=== PATIENT | female | born 1945 | race Caucasian/White ===

== ENCOUNTER 2022-03-10 16:43 | Inpatient (IN) | payer MEDICARE, MEDICAID ==
[~2022-03-10] VITALS: Ht 154.9 cm; Wt 86.4 kg
[~2022-03-10 16:43] MED LIST: B/P MED; LEVOXYL0.025 MG; NAPROXEN 3375 MG/TAB PO; NORCO 325 MG-51 TAB PO
[2022-03-10 20:09] LABS: COLLECTION METHOD CLEAN CATCH
[2022-03-10 20:12] LABS: BASO % 0.2 % (0.0-2.0); EOS % 0.2 % (0.0-4.0); GRAN # 11.9 K/mm3 (1.4-6.5); GRAN % 84.7 % (42.2-75.2); HEMATOCRIT 38.1 % (37.0-47.0); HEMOGLOBIN 11.9 g/dl (12.5-16.0); LYMPH # 1.4 K/mm3 (1.2-3.4); LYMPH % 9.9 % (20.0-51.0); MEAN CELL VOLUME 82 fl (80.0-100.0); MEAN CORPUSCULAR HEMOGLOBIN 26 pg (27-31); MEAN CORPUSCULAR HGB CONC 31 g/dl (33.0-37.0); MEAN PLATELET VOLUME 10.1 fl (7.4-10.4); MONO # 0.6 K/mm3 (0.1-0.6); MONO % 4.5 % (1.7-9.3); PLATELET COUNT 291 K/mm3 (130-400); RED BLOOD COUNT 4.65 M/mm3 (4.10-5.30); REDCELL DISTRIBUTION WIDTH-CV 19.4 % (11.5-14.5)
[2022-03-10 20:13] LABS: URINE APPEARANCE Cloudy (CLEAR/HAZY); URINE COLOR Amber (YELLOW)
[2022-03-10 20:14] LABS: URINE BLOOD Negative (NEGATIVE); URINE GLUCOSE Negative (NEGATIVE); URINE KETONE TRACE (NEGATIVE); URINE NITRATE Negative (NEGATIVE); URINE PROTEIN(semi-quant) 1+ (NEGATIVE)
[2022-03-10 20:16] LABS: MUCOUS Present (NOT PRESENT); URINE BACTERIA None Seen /hpf (NONE SEEN)
[2022-03-10 20:41] LABS: ALBUMIN 3.7 gm/dL (3.4-4.8); BILIRUBIN,TOTAL 1.7 mg/dL (0.2-1.2); C-REACTIVE PROTEIN 1.13 mg/dL (0.00-0.50); CALCIUM 9.5 mg/dL (8.4-10.2); CREATININE, serum 0.88 mg/dL (0.57-1.11); POTASSIUM 4.1 mmol/L (3.5-4.5); TOTAL PROTEIN 7.8 gm/dL (6.2-8.1)
[2022-03-10] MEDS ORDERED: PROVENTIL0.09 MG/A1 IH (23:58)
[2022-03-11] VITALS (19 sets, daily range): BP systolic 126–217; BP diastolic 54–83; PULSE 70–110; TEMP 97.7–100.7
[2022-03-11 01:10] LABS: INR 1.1 (0.8-3.0); PROTHROMBIN TIME 12.2 SECONDS (9.7-12.8)
--- NOTE | 2022-03-11 01:25 | NUR ---
PT BROUGHT TO ROOM FROM ED.
[2022-03-11 01:28] LABS: CHOLESTEROL RISK RATIO 3.7; PHOSPHOROUS 3.5 mg/dL (2.3-4.7)
--- NOTE | 2022-03-11 01:41 | NUR ---
PT A&OX4 RESTING IN BED. ADMISSION ASSESSMENT COMPLETE. RATES PN AN 12/15. DENIES NV. O2 ON 3L. TELE IN PLACE. ZOSYN AND NS INFUSING IN LH. NO NEEDS AT THIS TIME. CALL LIGHT WITHIN REACH.
[2022-03-11 04:43] LABS: ALANINE AMINOTRANSFERASE 184 U/L (0-55); ALBUMIN 3.1 gm/dL (3.4-4.8); ALKALINE PHOSPHATASE 257 U/L (40-150); ANION GAP 8 mmol/L (7-16); AST,SGOT 65 U/L (5-34); BILIRUBIN,TOTAL 1.7 mg/dL (0.2-1.2); BLOOD UREA NITROGEN 25 mg/dL (10-20); CALCIUM 8.8 mg/dL (8.4-10.2); CARBON DIOXIDE 26 mmol/L (23-31); CHLORIDE 108 mmol/L (98-107); CREATININE, serum 0.83 mg/dL (0.57-1.11); GLUCOSE 120 mg/dL (70-99); LIPASE > 1200 U/L (8-78); POTASSIUM 3.9 mmol/L (3.5-4.5); SODIUM 142 mmol/L (136-145); TOTAL PROTEIN 6.6 gm/dL (6.2-8.1)
--- NOTE | 2022-03-11 09:32 | NUR ---
KALLIE met with the patient to discuss discharge plan. The patient lives in [place] with her daughter, Purnima (ph#[phone]), and two granddaughters. She reports needing some assistance getting in and out of the shower, but her family helps her with this. She has a cane. The patient's PCP is Dr. Julio Shields and she receives her medications from [facility] in . The patient does not have a DPOA-HC and she was not interested in completing one at this time. The patient states that she is still , but that her and her have been seperated for 20 years. She has two children: Purnima and Bruno ([place]). KALLIE informed her how her is her legal next of kin, since she does not have a DPOA-HC and encouraged her to think about completing a DPOA-HC. The patient verbalized understanding and still declined to complete one at his time. The patient plans to return home with her family upon discharge. KALLIE asked the PA for PT/OT to be ordered. *Discharge plan: home with family*
--- NOTE | 2022-03-11 10:00 | NUR ---
RT REPORTED TO NURSING THAT PATIENT WAS FOUND WITH HER OXYGEN OFF, PATIENT TOOK IT OFF AGAIN. 02 SATS IN 70'S. PATIENT WAS ON 2L PER NC WITH SATS IN MID 90'S. RT SAID PATIENT SLOW TO RECOVER, SLEEPY, AND NON-COMPLIENT. PATIENT NOW ON 4L PER NC WITH SATS IN LOW 90'S.
--- NOTE | 2022-03-11 11:00 | NUR ---
PCT REPORTED ELEVATED B/P WITH A SYSTOLIC IN 200'S, CHECKED TWICE. PATIENT REPORTS THIS IS DUE TO PAIN AND JUST RECENTLY GOT UP TO BEDSIDE COMMODE. [facility], SEE ORDERS. GAVE PRN IV HYDRALAZINE AND PRN IV MORPHINE. PATIENT STILL PERIODICALLY TAKING OXYGEN OFF, OXY MASK NOW APPLIED AT 4L WITH SATS IN LOW 90'S. PATIENT IS FREQUENTLY DROWSY EVEN THOUGH SHE DENIES THAT SHE IS ABLE TO SLEEP. NURSING EXPRESSED THE IMPORTANCE OF HER LEAVING HER OXYGEN OFF, PATIENT ACTS LIKE SHE DOESN'T REALLY NEEDS IT AND "WE ARE ALL CRAZY". WILL CONTINUE TO MONITOR. PATIENT STILL NPO FOR SCHEDULED ERCP TODAY. IV FLUIDS INFUSING VIA PUMP. CALL LIGHT IN REACH. BED ALARM ON.
--- NOTE | 2022-03-11 11:45 | NUR ---
PCT WENT TO RECHECK O2 LEVEL AND PATIENT AGAIN TOOK OXY MASK OFF AND PUT IT ON HER FOREHEAD. PATIENT, AGAIN, REMINDED/EDUCATED ABOUT OXYGEN PERFUSION. OXY MASK BACK ON AT 4L WITH SATS IN LOW 90'S. PATIENT DROWSY AND FALLS ASLEEP FREQUENTLY. RECENTLY ROUNDED AND PATIENT SHOWED VERY LITTLE INTEREST IN TALKING WITH THE SURGEON. PATIENT NOW SLEEPING AGAIN.
--- NOTE | 2022-03-11 15:55 | NUR ---
PATIENT WOKE UP CONFUSED AND WANTING TO LEAVE. PATIENT TOOK OXYGEN OFF AGAIN. NURSING ATTEMPTING TO RE-ORIENT PATIENT. PATIENT GETS UPSET AND SAYS SHES NOT CONFUSED HOWEVER SHE HAS BEEN REMINDED THREE TIMES THAT HER ERCP PROCEDURE IS TODAY, PATIENT CAN'T SEEM TO UNDERSTAND WHY SHE CAN'T HAVE WATER AFTER THIS HAS BEEN EXPLAINED MULTIPLE TIMES. PATIENT MAKING STATEMENT LIKE "YOU HAVEN'T LET ME EAT OR DRINK IN THREE DAYS". PATIENT IS CLEARLY CONFUSED BUT REFUSES TO LET NURSING RE-ORIENT HER.
--- NOTE | 2022-03-11 16:26 | NUR ---
Qi: shinto Situation: drill presser stopped by room on rounds Background: Pt was sleeping solid each visit so drill presser did not disturb Assessment: Will try tomorrow again Recommendation: drill presser will follow up as needed
--- NOTE | 2022-03-11 16:30 | NUR ---
PATIENT GOING DOWN TO ENDO VIA BED. CONSENT ON CHART. IV FLUIDS TO GRAVITY. GAVE REPORT TO ENDO NURSE. PATIENT OFF FLOOR.
--- NOTE | 2022-03-11 21:30 | NUR ---
PT IN BED, DROWSY POST ENDO PROCEDURE. MEDICATED WITH APRESOLINE 10MG IVP FOR ELEVATED SBP. PT HAS IVF TO LEFT HAND INFUSING WITHOUT REDNESS OR SWELLING. O2 AT 3L/NC.
--- NOTE | 2022-03-11 22:20 | NUR ---
REPORTS ABD PAIN, MEDICATED WITH MORPHINE 2MG IVP AT THIS TIME. IS ONE ASSIST TO BATHROOM AND BACK TO BED. TELEMETRY SHOWS SR. WILL BE NPO AFTER MIDNIGHT FOR POSSIBLE GALLBLADDER SURGERY.
[2022-03-12] VITALS (7 sets, daily range): BP systolic 126–176; BP diastolic 52–76; PULSE 94–103; TEMP 98.3–98.9
--- NOTE | 2022-03-12 03:53 | NUR ---
MEDICATED WITH HYDRALZINE 10MG IVP FOR ZFL=314. PT RESTING WITH EYES CLOSED.
--- NOTE | 2022-03-12 05:22 | NUR ---
PT REPORTS ABD PAIN, LAB IN TO DRAW AM BLOOD WORK. PT TAKES SIPS OF WATER, REMINDED OF NPO STATUS FOR POSSIBLE SURGERY TODAY, PT STATES SHE IS UNAWARE OF ANY PROCEDURE. MEDICATED WITH MORPHINE 2MG IVP FOR ABD PAIN.
[2022-03-12 06:40] LABS: HEMOGLOBIN 10.2 g/dl (12.5-16.0); MEAN CELL VOLUME 86 fl (80.0-100.0); MEAN CORPUSCULAR HEMOGLOBIN 27 pg (27-31); MEAN CORPUSCULAR HGB CONC 31 g/dl (33.0-37.0); MEAN PLATELET VOLUME 10.6 fl (7.4-10.4); PLATELET COUNT 241 K/mm3 (130-400); RED BLOOD COUNT 3.84 M/mm3 (4.10-5.30)
[2022-03-12 07:52] LABS: ANISOCYTOSIS 2+; BAND 1 % (0-10); LYMPHOCYTE 4 % (20.0-51.0); NEUTROPHILS 86 % (42.0-75.2); PLATELET ESTIMATE NORMAL (NORMAL)
--- NOTE | 2022-03-12 08:30 | NUR ---
DR. ELIZABETH NOTIFIED OF PT'S WBC 21.7
--- NOTE | 2022-03-12 12:53 | NUR ---
Airplane Gastank Liner Assembler offered prayer and support with patient.
--- NOTE | 2022-03-12 20:00 | NUR ---
PT IN BED, DROWSY. DENIES NEED FOR PAIN MEDS AT THIS TIME. HAS IVF INFUSING TO LT UPPER ARM WITHOUT REDNESS OR SWELLING. MILD UPPER EXT EDEMA NOTED. WEARING OXYGEN AT 1L/NC. IS AWARE OF PENDING SURGERY IN THE MORNING.
--- NOTE | 2022-03-12 22:00 | NUR ---
PT MEDICATED WITH HYDRALAZINE 10MG IVP FOR ILW=415. CONSENT SIGNED FOR ROBOTIC ALLAN AT 0900 03/13/22. MORPHINE 2MG IVP FOR ABD PAIN.
[2022-03-13] VITALS (9 sets, daily range): BP systolic 134–187; BP diastolic 64–138; PULSE 99–112; TEMP 97.8–99
--- NOTE | 2022-03-13 01:00 | NUR ---
Patient care, medication administration and nursing documentation occurred during a Daylight Savings Time Change.
--- NOTE | 2022-03-13 01:11 | NUR ---
UP TO BATHROOM WITH ONE ASSIST, VOIDS AND BACK TO BED. EYE DROPS FOR DRY EYES GIVEN.
--- NOTE | 2022-03-13 04:09 | NUR ---
PT WITH ELEVATED SBP-184, MEDICATED WITH APRESOLINE 10MG IVP AT THIS TIME.
--- NOTE | 2022-03-13 04:35 | NUR ---
B/P=134/64 AFTER HYDRALAZINE.
[2022-03-13 06:38] LABS: BASO % 0.2 % (0.0-2.0); EOS # 0.1 K/mm3 (0.0-0.7); EOS % 0.7 % (0.0-4.0); GRAN # 15.5 K/mm3 (1.4-6.5); LYMPH # 1.2 K/mm3 (1.2-3.4); LYMPH % 6.4 % (20.0-51.0); MEAN CELL VOLUME 86 fl (80.0-100.0); MEAN CORPUSCULAR HGB CONC 31 g/dl (33.0-37.0); MEAN PLATELET VOLUME 10.6 fl (7.4-10.4); MONO # 1.5 K/mm3 (0.1-0.6); PLATELET COUNT 245 K/mm3 (130-400); RED BLOOD COUNT 3.68 M/mm3 (4.10-5.30); REDCELL DISTRIBUTION WIDTH-CV 19.8 % (11.5-14.5)
[2022-03-13 06:43] LABS: HEMATOCRIT 31.6 % (37.0-47.0); HEMOGLOBIN 9.8 g/dl (12.5-16.0); MEAN CORPUSCULAR HEMOGLOBIN 27 pg (27-31)
[2022-03-13 07:02] LABS: ALBUMIN 2.7 gm/dL (3.4-4.8); BILIRUBIN,TOTAL 2.8 mg/dL (0.2-1.2); CALCIUM 8.8 mg/dL (8.4-10.2); CREATININE, serum 0.75 mg/dL (0.57-1.11); POTASSIUM 3.4 mmol/L (3.5-4.5); TOTAL PROTEIN 6.6 gm/dL (6.2-8.1)
--- NOTE | 2022-03-13 14:10 | NUR ---
PT HYPERTENSIVE, DR. SOSA NOTIFIED, NEW ORDER FOR AMLODIPINE 5MG TAB PO ONCE
--- NOTE | 2022-03-13 20:00 | NUR ---
PT IN BED, IS ALERT AND ORIENTED X4. IVF CAPPED, HAS INT TO LEFT OUTER AC SITE, FLUSHES WELL. DENIES NEED FOR PAIN MEDS AT THIS TIME. ABD SOFT. IS TO HAVE ROBOTIC ALLAN 03/14/22. PT AWARE.
[2022-03-14] VITALS (12 sets, daily range): BP systolic 135–187; BP diastolic 62–99; PULSE 87–103; TEMP 97.6–98.7
--- NOTE | 2022-03-14 04:15 | NUR ---
PT HAS ELEVATED B/P AND ABD DISCOMFORT. MEDICATED WITH MORPHINE 2MG IVP AND APRESOLINE 10MG IVP.
--- NOTE | 2022-03-14 05:32 | NUR ---
PT UP TO BATHROOM, VOIDS AND HAS MOD LOOSE STOOL. SUPERVISED TO CHAIR AT BEDSIDE PER HER REQUEST.
[2022-03-14 06:54] LABS: MEAN CELL VOLUME 85 fl (80.0-100.0); MEAN CORPUSCULAR HGB CONC 31 g/dl (33.0-37.0); MEAN PLATELET VOLUME 10.9 fl (7.4-10.4); PLATELET COUNT 251 K/mm3 (130-400); RED BLOOD COUNT 3.46 M/mm3 (4.10-5.30); REDCELL DISTRIBUTION WIDTH-CV 19.4 % (11.5-14.5)
[2022-03-14 06:59] LABS: CALCIUM 8.8 mg/dL (8.4-10.2); CREATININE, serum 0.7 mg/dL (0.57-1.11); POTASSIUM 3.1 mmol/L (3.5-4.5)
[2022-03-14 07:02] LABS: HEMATOCRIT 29.4 % (37.0-47.0); HEMOGLOBIN 9.1 g/dl (12.5-16.0); MEAN CORPUSCULAR HEMOGLOBIN 26 pg (27-31)
--- NOTE | 2022-03-14 07:51 | NUR ---
Received shift report from weight shifter nurseConcepcion RN
--- NOTE | 2022-03-14 08:16 | NUR ---
Patient sleeping in the recliner by the bedside. Patient easily arouse. IV antibiotic infusin without difficulty. Patient aware of the NPO status for upcoming procedure late in the afternoon. Patient denies of pain at this time.
--- NOTE | 2022-03-14 13:27 | NUR ---
Patient has elevated B/P of 187/97, Bonny BRINK notified. PRN Apresoline administered. Patient tolerated it well. Call hood place within reach.
--- NOTE | 2022-03-14 16:46 | NUR ---
Patient left the unit to OR for procedure via bed.
--- NOTE | 2022-03-14 18:57 | NUR ---
Received patient from PACU , lethargic, alert and oriented. Patient requested to use the bedside commode. Patient had small amount of soft bowel movement. VSS.
--- NOTE | 2022-03-14 20:00 | NUR ---
PT IN BED. EATS DINNER TRAY WITHOUT PROBLEM. INT TO LEFT OUTER AC SITE. WEARING OXYGEN AT 2L/NC. SCDS ON. DID NOT HAVE SURGERY TODAY.
--- NOTE | 2022-03-14 22:30 | NUR ---
IV ZOSYN INFUSING TO INT WITHOUT PROBLEM. PT RESIING WELL, B/P IMPROVED.
[2022-03-15 05:02] VITALS: BP 114/64; BP 144/64; PULSE 84; TEMP 98.4
--- NOTE | 2022-03-15 06:34 | NUR ---
PT HUNGRY THIS MORNING. IV ZOSYN CONNECTED TO LT OUTER AC SITE, INFUSING WITHOUT PROBLEM. ORDERING BREAKFAST.
[2022-03-15 06:48] LABS: BASO % 0.1 % (0.0-2.0); GRAN # 9.8 K/mm3 (1.4-6.5); GRAN % 88.6 % (42.2-75.2); LYMPH # 0.8 K/mm3 (1.2-3.4); LYMPH % 6.9 % (20.0-51.0); MEAN CELL VOLUME 85 fl (80.0-100.0); MEAN CORPUSCULAR HGB CONC 31 g/dl (33.0-37.0); MEAN PLATELET VOLUME 10.4 fl (7.4-10.4); MONO # 0.4 K/mm3 (0.1-0.6); MONO % 3.5 % (1.7-9.3); PLATELET COUNT 278 K/mm3 (130-400); RED BLOOD COUNT 3.56 M/mm3 (4.10-5.30); REDCELL DISTRIBUTION WIDTH-CV 19.5 % (11.5-14.5)
[2022-03-15 06:50] LABS: HEMATOCRIT 30.1 % (37.0-47.0); HEMOGLOBIN 9.2 g/dl (12.5-16.0); MEAN CORPUSCULAR HEMOGLOBIN 26 pg (27-31)
[2022-03-15 07:29] VITALS: BP 177/79; PULSE 92; TEMP 98.4
[2022-03-15 07:50] LABS: ALBUMIN 2.6 gm/dL (3.4-4.8); BILIRUBIN,TOTAL 0.8 mg/dL (0.2-1.2); CALCIUM 8.4 mg/dL (8.4-10.2); CREATININE, serum 0.84 mg/dL (0.57-1.11); TOTAL PROTEIN 5.9 gm/dL (6.2-8.1)
[2022-03-15 12:12] VITALS: BP 138/67; PULSE 91; TEMP 98.3
--- NOTE | 2022-03-15 12:44 | NUR ---
Patient Care Representative attended clinical rounds with the team. Patient may be transferred to a tertiary center today.
[2022-03-15 16:57] VITALS: BP 155/85; PULSE 78; TEMP 98.1
[2022-03-15 19:51] VITALS: BP 157/82; PULSE 81; TEMP 97.5
[2022-03-15 23:53] VITALS: BP 135/61; PULSE 71; TEMP 97.6
[2022-03-16 03:45] VITALS: BP 154/69; PULSE 68; TEMP 98.2
[2022-03-16 07:04] LABS: BASO # 0.1 K/mm3 (0.0-0.2); BASO % 0.6 % (0.0-2.0); EOS # 0.2 K/mm3 (0.0-0.7); EOS % 1.8 % (0.0-4.0); GRAN # 7.2 K/mm3 (1.4-6.5); GRAN % 69.3 % (42.2-75.2); LYMPH # 1.9 K/mm3 (1.2-3.4); LYMPH % 18.5 % (20.0-51.0); MEAN CELL VOLUME 87 fl (80.0-100.0); MEAN CORPUSCULAR HGB CONC 30 g/dl (33.0-37.0); MEAN PLATELET VOLUME 12.1 fl (7.4-10.4); MONO # 0.9 K/mm3 (0.1-0.6); MONO % 8.8 % (1.7-9.3); PLATELET COUNT 282 K/mm3 (130-400); RED BLOOD COUNT 3.34 M/mm3 (4.10-5.30); REDCELL DISTRIBUTION WIDTH-CV 19.7 % (11.5-14.5)
[2022-03-16 07:07] LABS: HEMATOCRIT 28.9 % (37.0-47.0); HEMOGLOBIN 8.8 g/dl (12.5-16.0); MEAN CORPUSCULAR HEMOGLOBIN 26 pg (27-31)
[2022-03-16 07:31] LABS: CALCIUM 8.5 mg/dL (8.4-10.2); CREATININE, serum 0.97 mg/dL (0.57-1.11); POTASSIUM 3.8 mmol/L (3.5-4.5)
[2022-03-16 07:32] VITALS: BP 170/51; PULSE 52; TEMP 97.6
[2022-03-16 11:28] VITALS: BP 172/64; PULSE 66; TEMP 97.6
--- NOTE | 2022-03-16 11:34 | NUR ---
Patient transferred to [facility].
[2022-03-16 15:19] VITALS: BP 133/53; PULSE 80; TEMP 98
== END 2022-03-16 17:03 | disposition short-term general hospital (02) | DRG 439 ==
LOC: COL.ER 16:43 → SURG 03-11 00:12
PROVIDERS: Internal Medicine Gastroenterology; Nurse Practitioner Family; Physician Assistant; Surgery; ADMIT Internal Medicine
PROC: BF131ZZ Fluoroscopy of Gallbladder and Bile Ducts using Low Osmolar Contrast (ICD-10-PCS; 2022-03-11)
PROC: 0FC98ZZ Extirpation of Matter from Common Bile Duct, Via Natural or Artificial Opening Endoscopic (ICD-10-PCS; principal; 2022-03-11 15:30)
DX: K85.10 Biliary acute pancreatitis without necrosis or infection (principal); E87.20 Acidosis, unspecified; R65.10 Systemic inflammatory response syndrome (SIRS) of non-infectious origin without acute organ dysfunction; I10 Essential (primary) hypertension; E78.5 Hyperlipidemia, unspecified; D72.829 Elevated white blood cell count, unspecified; D64.9 Anemia, unspecified; Z96.652 Presence of left artificial knee joint; R73.9 Hyperglycemia, unspecified; I71.40 Abdominal aortic aneurysm, without rupture, unspecified; I71.23 Aneurysm of the descending thoracic aorta, without rupture; K44.9 Diaphragmatic hernia without obstruction or gangrene; Z53.8 Procedure and treatment not carried out for other reasons; K29.70 Gastritis, unspecified, without bleeding; K80.70 Calculus of gallbladder and bile duct without cholecystitis without obstruction; E87.6 Hypokalemia; Z91.041 Radiographic dye allergy status; Z87.19 Personal history of other diseases of the digestive system; Z90.710 Acquired absence of both cervix and uterus
CPT/HCPCS: C1769; J0360; J1100; J1170; J2270; J2405; J2543; J2704; J3010; J3480; J7030; Q9967